=== PATIENT | female | born 1995 | race Caucasian/White ===

== ENCOUNTER 2018-11-22 20:44 | Emergency (ER) | payer SELFPAY ==
[2018-11-22] MEDS ORDERED: diphenhydrAMINE 50 MG/ML VIAL ONE (20:49)
[2018-11-22] MEDS ORDERED: Famotidine/PF 20 mg/2ml Vial ONE (20:49)
[2018-11-22] MEDS ORDERED: EPINEPHrine 1 MG/ML AMP ONE (20:49)
[2018-11-22] MEDS ORDERED: methylPREDNISolone Sod Succ/PF 125 MG/2 ML VIAL ONE (20:56)
== END 2018-11-22 22:16 | disposition home or self-care (01) ==
LOC: ERS 20:44
DX: T78.1XXA Other adverse food reactions, not elsewhere classified, initial encounter (principal); F31.9 Bipolar disorder, unspecified
CPT/HCPCS: 96374; 96375; J0171; J1200; J2930; S0028